=== PATIENT | female | born 1930 | race Caucasian/White ===

== ENCOUNTER 2016-10-01 17:55 | Inpatient (IN) | payer MEDICAID, MEDICARE ==
[~2016-10-01] VITALS: Ht 152.4 cm; Wt 41.7 kg
[~2016-10-01 17:55] MED LIST: AMIO200T PO; LEVO50TA8 PO; Lactose-Free Food PO; METO50TA3 PO; RIVA10TA PO; Valsartan PO
--- NOTE | 2016-10-01 18:25 | NUR ---
CALLED NURSING SUP FOR TELE BED
--- NOTE | 2016-10-01 18:28 | NUR ---
PT BIB RA C/O GENERALIZED WEAKNESS. PT IS FEBRILE CURRENTLY, NO REPORT OF PRIOR FEVERS FROM PRIVATE CAREGIVER. SKIN WARM NONDIAPHORETIC. RESP EVEN UNLABORED. PER PRIVATE CAREGIVER, PT WAS UNABLE TO SWALLOW HER MEDICATIONS TODAY. REPORTS GENERALIZED PAIN. MD NOTIFIED. PT ABLE TO MAKE NEEDS KNOWN, ANSWER QUESTIONS APPROPRIATELY. IN ER BED 03. IV ACCESS ESTABLISHED; LABS DRAWN FROM LINE. IN AND OUT CATH PERFORMED FOR URINE SAMPLE.
--- NOTE | 2016-10-01 18:30 | NUR ---
PT CAN GO TO TELE [phone]
[2016-10-01 18:31] LABS: BASOPHILS # (AUTO) 0.4 /CMM (0.0-0.2); BASOPHILS % (AUTO) 2.4 % (0.0-2.0); EOSINOPHILS % (AUTO) 0.1 % (0.0-6.0); HEMATOCRIT 41 % (33-45); HEMOGLOBIN 13.8 g/dL (11.5-14.8); LYMPHOCYTES # (AUTO) 0.5 /CMM (0.8-4.8); MEAN CORPUSCULAR HEMOGLOBIN 34 PG (26.0-33.0); MEAN CORPUSCULAR HGB CONC 34 g/dl (31.0-36.0); MEAN CORPUSCULAR VOLUME 99 fL (82-100); MONOCYTES # (AUTO) 2.1 /CMM (0.1-1.30); MONOCYTES % (AUTO) 12.5 % (2.0-12.0); NEUTROPHILS # (AUTO) 14.1 /CMM (1.8-8.9); PLATELET COUNT (AUTO) 233 /CMM (150-450); RDW COEFFICIENT OF VARIATION 13.2 (11.5-15.0); RED BLOOD CELL COUNT(AUTO) 4.13 MIL/uL (4.0-5.2); WHITE BLOOD COUNT (AUTO) 17.1 K/uL (4.3-11.0)
--- NOTE | 2016-10-01 18:35 | NUR ---
PT STATES HER PRIMARY CARE PHYSICIAN IS DR HORAN
[2016-10-01 18:38] LABS: APPEARANCE,URINE Turbid (CLEAR); BILIRUBIN,URINE Negative (NEGATIVE); BLOOD, URINE Moderate Ery/uL (NEGATIVE); COLOR,URINE Yellow (YELLOW); KETONES,URINE Negative (NEGATIVE); LEUKOCYTE ESTERASE ,URINE Large (NEGATIVE); NITRITE, URINE Positive (NEGATIVE); PH,URINE 8.5 (5.0-8.0); PROTEIN,URINE 100 mg/dl (NEGATIVE); UGLUCOSE Negative (NEGATIVE); UROBILINOGEN,URINE 0.2 EU/dL (0.2)
[2016-10-01] MEDS ORDERED: ACETAMINOPHEN 650 MG/SUPP.RECT RC ONE ×2 (18:42→19:00)
[2016-10-01] MEDS ORDERED: CEFTRIAXONE 1GM BAG (ER ONLY) 50 ML IV ONE (18:43)
[2016-10-01] MEDS ORDERED: IV NS 0.9% 500 ML IV ONE (18:43)
[2016-10-01] MEDS ORDERED: IV NS 0.9% 1,000 ML ONE (18:43)
[2016-10-01] MEDS ORDERED: IV SET PRIMARY 1 EA INFUS.SET MC ONE (18:43)
[2016-10-01 18:44] LABS: INR 0.94 (0.87-1.13); PROTHROMBIN TIME 9.8 SECS (9.5-12.7)
[2016-10-01 18:47] LABS: ALANINE AMINOTRANSFERASE 242 U/L (12-78); ALBUMIN 3.2 g/dL (3.4-5.0); ASPARTATE AMINOTRANSFERASE 165 U/L (15-37); BILIRUBIN,DIRECT 2.1 mg/dL (0.0-0.2); BILIRUBIN,TOTAL 2.7 mg/dL (0.2-1.0); CALCIUM, SERUM 9.3 mg/dL (8.5-10.1); CARBON DIOXIDE 23 mmol/L (21-32); CHLORIDE 103 mmol/L (98-107); CREATININE 1.7 mg/dL (0.6-1.3); GLUCOSE 130 mg/dL (74-106); SODIUM SERUM 137 mmol/L (136-145); TOTAL PROTEIN, SERUM 7.8 g/dL (6.4-8.2); UREA NITROGEN, BLOOD 30 mg/dL (7-18)
[2016-10-01 18:52] LABS: POTASSIUM 6.3 mmol/L (3.5-5.1)
[2016-10-01 18:54] LABS: LACTIC ACID 3.1 mmol/L (0.4-2.0)
[2016-10-01 18:59] LABS: ADD URINE CULTURE YES; BACTERIA,URINE 4+ /HPF (None Seen); SQUAMOUS EPITHELIAL CELL,UR Few /HPF (None Seen); WBC,URINE 21-50 /HPF (0-3)
[2016-10-01] MEDS ORDERED: IV NS 0.9% 1,000 ML BAG IV ONE (19:00)
[2016-10-01] MEDS ORDERED: CEFTRIAXONE 1 G in IV D5W 50 ML IV ONE (19:00)
--- NOTE | 2016-10-01 19:04 | NUR ---
PAGED CARPET TECHNICIAN FOR [facility] DR SUZI CRISTOBAL
[2016-10-01 19:18] LABS: LIPASE 49768 U/L (73-393)
[2016-10-01] MEDS ORDERED: IV NS 0.9% 1,000 ML IV PRN (19:24)
[2016-10-01] MEDS ORDERED: ENOXAPARIN SODIUM 40 MG/0.4 ML DISP.SYRIN SQ SCH (19:30)
[2016-10-01] MEDS ORDERED: MAGNESIUM HYDROXIDE 30 ML UDC PO PRN (19:30)
[2016-10-01] MEDS ORDERED: ACETAMINOPHEN 325 MG TABLET PO PRN (19:30)
[2016-10-01] MEDS ORDERED: ONDANSETRON HCL/PF 4 MG/2 ML VIAL IVP PRN (19:30)
[2016-10-01] MEDS ORDERED: MORPHINE SULFATE INJ 2 MG/ML DISP.SYRIN IV PRN (19:30)
[2016-10-01] MEDS ORDERED: Z GUARD REMEDY 2 OZ OINT TP PRN (19:30)
[2016-10-01] MEDS ORDERED: ZOLPIDEM TARTRATE 5 MG TABLET PO PRN (19:30)
[2016-10-01] MEDS ORDERED: MAG HYDROX/AL HYDROX/SIMETH 30 ML UDC PO PRN (19:30)
[2016-10-01 19:31] LABS: ALKALINE PHOSPHATASE 1180 U/L (46-116)
--- NOTE | 2016-10-01 19:43 | NUR ---
ROOM CHANGED TO [facility]
[2016-10-01 19:47] LABS: ANISOCYTOSIS 1+; BAND % (MANUAL) 9 % (0.0-5.0); LYMPHOCYTES % (MANUAL) 3 % (16-48); MONOCYTES % (MANUAL) 13 % (0-11.0); NEUTROPHILS % (MANUAL) 75 (42-76); PLATELET ESTIMATE ADEQUATE
--- NOTE | 2016-10-01 19:55 | NUR ---
REPORT GIVEN TO BRENDA RIVAS FOR ADMISSION
[2016-10-01 20:30] VITALS: BP 139/74
[2016-10-01] MEDS ORDERED: SODIUM POLYSTYRENE SULFONATE 15 G/60 ML BOTTLE PO ONE (20:30)
--- NOTE | 2016-10-01 20:30 | NUR ---
RN NOTES ADMITTED A 86 YEARS OLD, FEMALE PT FROM ER WITH PRIMARY DIAGNOSIS OF SEPSIS AND UTI, UNDER DR CRISTOBAL. PT ALERT AND [id number] X2-3, WITH PERIODS OF FORGETFULNESS, NO SOB, NOT IN DISTRESS. VITAL SIGNS STABLE, AFEBRILE. PT DENIES ABDOMINAL PAIN, NAUSEA AND VOMITING. ATTACHED TO TELE MONITOR WHICH READS NORMAL SINUS RHYTHM WITH HEART RATE AT 71. ASSESSMENT OF SKIN CONDITION DONE WITH PICTURES TAKEN AND FILED IN THE CHART. SKIN CARE AND WOUND DRESSING DONE. ALL DUE MEDS GIVEN. ALL ORDERS NOTED AND CARRIED OUT. KEPT COMFORTABLE AND ATTENDED. WILL CONTINUE TO MONITOR PT.
--- NOTE | 2016-10-01 20:30 | NUR ---
PT TRANSPORTED TO [facility] IN STABLE CONDITION VIA ACLS PROTOCOL. VSS. NAD NOTED.
[2016-10-01] MEDS ORDERED: IV SET PRIMARY PUMP SET 1 EA INFUS.SET MC ONE (20:36)
[2016-10-01] MEDS: IV NS 0.9% 1,000 ML IV PRN (20:42)
[2016-10-01] MEDS ORDERED: MEROPENEM 1 G VIAL IV ONE (21:13)
[2016-10-01] MEDS ORDERED: METRONIDAZOLE 500MG/ NS 100ML 200 ML IV ONE (21:14)
[2016-10-01] MEDS ORDERED: SODIUM POLYSTYRENE SULFONATE 15 G/60 ML BOTTLE ONE (21:14)
[2016-10-01] MEDS ORDERED: LEVOFLOXACIN 750 MG /D5W 150ML 150 ML IV ONE (21:14)
[2016-10-01] MEDS ORDERED: AMIODARONE HCL 200 MG TABLET ONE (21:22)
[2016-10-01] MEDS ORDERED: METOPROLOL TARTRATE 50 MG TABLET ONE (21:22)
[2016-10-01] MEDS: MEROPENEM 1 G in IV NS 0.9% 100 ML IV SCH (21:36)
[2016-10-01] MEDS: AMIODARONE HCL 200 MG TABLET PO SCH (21:37)
[2016-10-01] MEDS: METOPROLOL TARTRATE 50 MG TABLET PO SCH (21:37)
[2016-10-01] MEDS ORDERED: SECONDARY IV SET 1 EA INFUS.SET MC ONE (21:40)
[2016-10-02] VITALS: BP 128/69
[2016-10-02] MEDS ORDERED: MORPHINE SULFATE INJ 2 MG/ML DISP.SYRIN ONE (01:00)
--- NOTE | 2016-10-02 01:05 | NUR ---
RN NOTES UPON DOING ROUNDS IT WAS NOTED PT IS MOANING AND COMPLAINING OF ABDOMINAL PAIN 03/11, MORPHINE 2MG GIVEN IV. WILL CONTINUE TO MONITOR PT.
[2016-10-02 04:00] VITALS: BP 110/59
[2016-10-02] MEDS ORDERED: IV NS 0.9% 1,000 ML ONE (05:13)
[2016-10-02] MEDS: IV NS 0.9% 1,000 ML IV PRN ×2 (05:17→14:54)
[2016-10-02] MEDS: MEROPENEM 1 G in IV NS 0.9% 100 ML IV SCH (05:19)
[2016-10-02 06:43] LABS: BASOPHILS % (AUTO) 0.1 % (0.0-2.0); HEMATOCRIT 34 % (33-45); HEMOGLOBIN 11.3 g/dL (11.5-14.8); LYMPHOCYTES # (AUTO) 0.5 /CMM (0.8-4.8); LYMPHOCYTES % (AUTO) 2.4 % (20.0-44.0); MEAN CORPUSCULAR HEMOGLOBIN 33 PG (26.0-33.0); MEAN CORPUSCULAR HGB CONC 33 g/dl (31.0-36.0); MEAN CORPUSCULAR VOLUME 101 fL (82-100); MONOCYTES # (AUTO) 0.4 /CMM (0.1-1.30); MONOCYTES % (AUTO) 2.1 % (2.0-12.0); NEUTROPHILS # (AUTO) 19.4 /CMM (1.8-8.9); NEUTROPHILS % (AUTO) 95.4 % (43.0-81.0); PLATELET COUNT (AUTO) 181 /CMM (150-450); RED BLOOD CELL COUNT(AUTO) 3.41 MIL/uL (4.0-5.2); WHITE BLOOD COUNT (AUTO) 20.4 K/uL (4.3-11.0)
[2016-10-02 06:50] VITALS: BP 114/64
--- NOTE | 2016-10-02 06:59 | NUR ---
RN NOTES PT ASLEEP IN BED, BREATHING REGULAR AND UNLABORED, NO SIGNS OF DISTRESS AND DISCOMFORT NOTED. TELEMONITOR READS SINUS RHYTHM WITH HEART RATE AT 72. VITAL SIGNS STABLE, AFEBRILE, NO CHILLS, NO EPISODE OF NAUSEA AND VOMITING. KEPT PAIN AT TOLERABLE LEVEL. AA DUE MEDS GIVEN AND TOLERATED WELL. SKIN CARE AND WOUND CARE DONE. TURNED AND REPOSITION Q2H SCHEDULED. KEPT DRY AND ATTENDED. WILL ENDORSE TO MORNING RN FOR CONTINUITY OF CARE.
[2016-10-02 07:34] LABS: ALBUMIN 2.3 g/dL (3.4-5.0); BILIRUBIN,TOTAL 2.7 mg/dL (0.2-1.0); CALCIUM, SERUM 8.1 mg/dL (8.5-10.1); CREATININE 1.2 mg/dL (0.6-1.3); PHOSPHORUS 3.9 mg/dL (2.5-4.9); POTASSIUM 4.5 mmol/L (3.5-5.1); TOTAL PROTEIN, SERUM 6.1 g/dL (6.4-8.2)
[2016-10-02] MEDS: LEVOTHYROXINE SODIUM 50 MCG TABLET PO SCH (08:40)
[2016-10-02] MEDS: METOPROLOL TARTRATE 50 MG TABLET PO SCH ×2 (08:40→21:00)
--- NOTE | 2016-10-02 09:18 | NUR ---
m/s lead c developer: md visit seen and examined by dr. tovar with orders. orders acknowledged.
--- NOTE | 2016-10-02 09:36 | NUR ---
m/s senior windows engineer: gi consult and neuro consult seen by dr. callaway (gi) and dr. nichols (neuro) at this time. per dr. callaway to continue clear liquid. pt denies n/v or any discomfort. will continue to monitor.
--- NOTE | 2016-10-02 09:44 | NUR ---
m/s lead teacher: notes received new orders from dr. callaway and orders acknowledged. informed dr. callaway that pt has a pacemaker and unable to do mrcp with order to cancel and keep her npo, stated, "it's too early to feed her." pt made aware. katarina (tech) here and informed him pt has a pacemaker, stated, "i will cancel it."
--- NOTE | 2016-10-02 10:08 | NUR ---
WOUND CARE CONSULT: PATIENT SEEN AND SKIN ASSESSMENT DONE. PATIENT ALERT, WEAK, IMMOBILE, INCONTINENT, ALBIN 13, NURSING STAFF ORDERED DEE ISOFLEX JOSE BED AND WILL BE PLACED WHEN AVAILABLE IN THE UNIT. SEE TODAY'S SKIN ASSESSMENT IN PCS ALONG WITH RECOMMENDATIONS. RECOMMEND MOISTURE PROTECTION AND PRESSURE PREVENTION MEASURES ORDERED. ALL DISCUSSED WITH NURSING STAFF. MD IN AGREEMENT WITH PLAN OF CARE. Addendum: 10/02/16 at 1010 by MADINA IGNACIO WNDNU Amended: Links added.
[2016-10-02] MEDS: PANTOPRAZOLE 40 MG VIAL IV SCH (10:15)
[2016-10-02 10:27] LABS: BAND % (MANUAL) 2 % (0.0-5.0); LYMPHOCYTES % (MANUAL) 4 % (16-48); MONOCYTES % (MANUAL) 3 % (0-11.0); NEUTROPHILS % (MANUAL) 91 (42-76)
[2016-10-02 10:28] LABS: PLATELET ESTIMATE ADEQUATE
[2016-10-02 10:32] LABS: ALBUMIN 2.2 g/dL (3.4-5.0); BILIRUBIN,DIRECT 1.9 mg/dL (0.0-0.2); BILIRUBIN,TOTAL 2.4 mg/dL (0.2-1.0); TOTAL PROTEIN, SERUM 5.7 g/dL (6.4-8.2)
[2016-10-02 10:37] LABS: THYROID STIMULATING HORMONE 0.315 uIU/mL (0.358-3.74)
[2016-10-02] MEDS: AMIODARONE HCL 200 MG TABLET PO SCH ×2 (10:44→22:25)
--- NOTE | 2016-10-02 11:55 | NUR ---
m/s donor relations manager: plastic surgeon consult dr. morris and tejas (acnp) at bedside assessing pt's skin at this time.
[2016-10-02] MEDS: CLOTRIMAZOLE 1% 15 GM TUBE TP SCH ×2 (13:46→16:50)
[2016-10-02] MEDS: UREA 10% -AHA 4% CREAM 57 GM TUBE TP SCH ×2 (13:47→16:50)
[2016-10-02] MEDS: HYDROGEL DRESSING 90 GM TUBE TP SCH (13:47)
--- NOTE | 2016-10-02 14:30 | NUR ---
m/s document management specialist: notes taken to ct scan via bed accompanied by tech.
--- NOTE | 2016-10-02 14:45 | NUR ---
M/S SURGICAL RESIDENT: NOTES BACK FROM CT SCAN TO HER ROOM. CALL LIGHT WITHIN REACH. IVF CONNECTED. WILL CONTINUE TO MONITOR.
--- NOTE | 2016-10-02 15:30 | NUR ---
M/S FRAME REPAIRER: NOTES BETTIE LI CALLED AND INFORMED ME RE: POSITIVE MRSA RIGHT NARES. CN MADE AWARE. EDUCATED PT ON MRSA AND ISOLATION PRECAUTION FOLLOWED. WILL CONTINUE TO MONITOR.
[2016-10-02 16:00] VITALS: BP_SYST 127; BP_DIAS 63; BP_DIAS 73
[2016-10-02] MEDS: BOOST PLUS FOOD-VANILLA 237 ML BOX PO SCH (16:48)
[2016-10-02] MEDS: RIVAROXABAN 15 MG TABLET PO SCH (16:51)
--- NOTE | 2016-10-02 18:18 | NUR ---
m/s manager shipping: notes resting comfortable in bed with no distress noted. remains npo. continue on ivf, infusing well. needs attended. call light within reach. will continue to monitor.
--- NOTE | 2016-10-02 19:30 | NUR ---
RN OPENING NOTES FOUND Pt ASLEEP IN BED. NO S/S OF ACUTE DISTRESS OR SOB NOTED. EQUAL CHEST RISE AND FALL. ON ISOLATION FOR MRSA NARES. Pt IS A/OX2, VERBAL, ABLE TO MAKE NEEDS KNOWN. CURRENTLY NPO EXCEPT FOR MEDS. IV ACCESS ON RFA #18G, NS @125ML/HR, INFUSING WELL. SAFETY MEASURES IN PLACE. BED LOW, LOCKED, HOB ELEVATED, SIDE RAILS UP, CALL LIGHT WITHIN EACH. WILL CONTINUE TO MONITOR Pt THROUGHOUT THE NIGHT FOR SAFETY.
[2016-10-02 20:00] VITALS: BP 121/58
[2016-10-02] MEDS: MUPIROCIN OINT 2% 22 GM TUBE SCH (21:00)
[2016-10-02] MEDS ORDERED: MUPIROCIN OINT 2% 22 GM TUBE SCH (21:00)
[2016-10-02 22:00] VITALS: BP 120/58
[2016-10-02] MEDS: MEROPENEM 500 MG in IV NS 0.9% 50 ML IV SCH (22:23)
[2016-10-03] MEDS: IV NS 0.9% 1,000 ML IV PRN ×2 (01:42→10:32)
--- NOTE | 2016-10-03 06:47 | NUR ---
RN CLOSING NOTES NO SIGNIFICANT CHANGES DURING THE SHIFT. ALL NEEDS MET AND ATTENDED TO. NO S/S OF ACUTE DISTRESS OR SOB NOTED DURING THE NIGHT. ALL SAFETY MEASURES CARRIED OUT. WILL ENDORSE TO DAYSHIFT RN FOR Pt's CARMINE.
[2016-10-03 07:21] LABS: BASOPHILS % (AUTO) 0.2 % (0.0-2.0); EOSINOPHILS % (AUTO) 0.3 % (0.0-6.0); HEMATOCRIT 34 % (33-45); HEMOGLOBIN 11.4 g/dL (11.5-14.8); LYMPHOCYTES # (AUTO) 0.7 /CMM (0.8-4.8); LYMPHOCYTES % (AUTO) 5.1 % (20.0-44.0); MEAN CORPUSCULAR HEMOGLOBIN 33 PG (26.0-33.0); MEAN CORPUSCULAR HGB CONC 34 g/dl (31.0-36.0); MEAN CORPUSCULAR VOLUME 100 fL (82-100); MONOCYTES # (AUTO) 0.7 /CMM (0.1-1.30); MONOCYTES % (AUTO) 4.9 % (2.0-12.0); NEUTROPHILS # (AUTO) 12.9 /CMM (1.8-8.9); NEUTROPHILS % (AUTO) 89.5 % (43.0-81.0); PLATELET COUNT (AUTO) 197 /CMM (150-450); RDW COEFFICIENT OF VARIATION 13.7 (11.5-15.0); RED BLOOD CELL COUNT(AUTO) 3.43 MIL/uL (4.0-5.2); WHITE BLOOD COUNT (AUTO) 14.4 K/uL (4.3-11.0)
[2016-10-03 07:50] LABS: CALCIUM, SERUM 7.8 mg/dL (8.5-10.1); CREATININE 0.8 mg/dL (0.6-1.3)
[2016-10-03 08:00] VITALS: BP 147/75
--- NOTE | 2016-10-03 08:00 | NUR ---
MS RN NOTE. PT. AWAKE, ALERT AND ORIENTED X2. DENIED PAIN AND SOB. NS@125ML/HR IVF. SIDE RAILS UP. CALL LIGHT WITHIN REACH. MONITOR CLOSELY.
[2016-10-03 08:07] LABS: MAGNESIUM 1.7 mg/dL (1.8-2.4); PHOSPHORUS 3.4 mg/dL (2.5-4.9)
--- NOTE | 2016-10-03 08:30 | NUR ---
SERUM POTASSIUM LEVEL 2.0. WILL RECHECK IT.
[2016-10-03] MEDS: MEROPENEM 500 MG in IV NS 0.9% 50 ML IV SCH ×2 (08:53→21:55)
[2016-10-03] MEDS: LEVOTHYROXINE SODIUM 50 MCG TABLET PO SCH (08:54)
[2016-10-03] MEDS: PANTOPRAZOLE 40 MG VIAL IV SCH (08:54)
[2016-10-03] MEDS: AMIODARONE HCL 200 MG TABLET PO SCH ×2 (08:56→21:00)
[2016-10-03] MEDS: METOPROLOL TARTRATE 50 MG TABLET PO SCH ×2 (08:57→21:59)
[2016-10-03] MEDS: HYDROGEL DRESSING 90 GM TUBE TP SCH (09:06)
[2016-10-03] MEDS: CLOTRIMAZOLE 1% 15 GM TUBE TP SCH ×2 (09:06→16:36)
[2016-10-03] MEDS: BOOST PLUS FOOD-VANILLA 237 ML BOX PO SCH ×2 (09:58→16:37)
[2016-10-03] MEDS: MUPIROCIN OINT 2% 22 GM TUBE SCH ×2 (09:59→21:58)
[2016-10-03] MEDS: UREA 10% -AHA 4% CREAM 57 GM TUBE TP SCH ×2 (09:59→16:36)
--- NOTE | 2016-10-03 10:00 | NUR ---
RECHECKED POTASSIUM LEVEL. IT WAS 2.0. NOTIFIED TO KARSTEN WINSLOW.
[2016-10-03] MEDS ORDERED: POTASSIUM CHLORIDE 10 MEQ/50 ML PREMIXED IVPB FOR PERIPHERAL LINE IV SCH (11:30)
[2016-10-03] MEDS ORDERED: POTASSIUM CHLORIDE 20 MEQ TAB.PRT.SR PO ONE (11:30)
[2016-10-03] MEDS ORDERED: SECONDARY IV SET 1 EA INFUS.SET MC ONE ×2 (11:40→14:02)
[2016-10-03] MEDS: POTASSIUM CL. PREMIX PERIPHER. 50 ML IV SCH ×2 (12:06→13:03)
[2016-10-03] MEDS: Magnesium 1GM/D5W 100ML PREMIX 100 ML IV SCH ×2 (14:19→15:18)
[2016-10-03 16:00] VITALS: BP 152/68
[2016-10-03] MEDS: IV 1/2NS 1000 ML 1,000 ML IV PRN (16:25)
[2016-10-03] MEDS: HYDROCODONE/APAP 5/325MG 1 EACH TABLET PO PRN (16:35)
[2016-10-03] MEDS: RIVAROXABAN 15 MG TABLET PO SCH (16:37)
--- NOTE | 2016-10-03 18:35 | NUR ---
CLOSING NOTE PT. AWAKE, ALERT AND ORIENTED X2. DENIED PAIN AT THIS TIME. REPOSITIONED PER PROTOCOL. SACRAL DRESSING CHANGED TWICE. 1/2NS @ 125ML/HR IVF. SIDE RAILS UP. CALL LIGHT WITHIN REACH. MONITOR CLOSELY.
--- NOTE | 2016-10-03 19:45 | NUR ---
RN OPENING NOTES RECEIVED REPORT FROM DAYSHIFT RN BRADY. FOUND Pt AWAKE IN BED. ECHO WAS BEING DONE AT BEDSIDE. NO S/S OF ACUTE DISTRESS OR SOB NOTED. Pt IS A/OX2, VERBAL. IV ACCESS RFA #18G, IVF 1/2NS @125ML/HR. SAFETY MEASURES IN PLACE. BED LOW, LOCKED, HOB ELEVATED, SIDE RAILS UP, CALL LIGHT AND BEDSIDE TABLE WITHIN REACH. WILL CONTINUE TO MONITOR Pt THROUGHOUT THE NIGHT FOR SAFETY.
[2016-10-03 19:50] VITALS: BP 139/78
[2016-10-03 22:00] VITALS: BP 139/78
[2016-10-04] MEDS: HYDROCODONE/APAP 5/325MG 1 EACH TABLET PO PRN ×2 (01:37→15:24)
[2016-10-04] MEDS: IV 1/2NS 1000 ML 1,000 ML IV PRN ×2 (01:49→10:44)
[2016-10-04 07:05] LABS: BASOPHILS # (AUTO) 0.1 /CMM (0.0-0.2); BASOPHILS % (AUTO) 0.4 % (0.0-2.0); EOSINOPHILS # (AUTO) 0.1 /CMM (0.0-0.7); EOSINOPHILS % (AUTO) 0.8 % (0.0-6.0); HEMATOCRIT 33 % (33-45); HEMOGLOBIN 11.6 g/dL (11.5-14.8); LYMPHOCYTES # (AUTO) 1.2 /CMM (0.8-4.8); LYMPHOCYTES % (AUTO) 7.9 % (20.0-44.0); MEAN CORPUSCULAR HEMOGLOBIN 34 PG (26.0-33.0); MEAN CORPUSCULAR HGB CONC 35 g/dl (31.0-36.0); MEAN CORPUSCULAR VOLUME 99 fL (82-100); MONOCYTES # (AUTO) 1.1 /CMM (0.1-1.30); MONOCYTES % (AUTO) 7.9 % (2.0-12.0); NEUTROPHILS # (AUTO) 12.1 /CMM (1.8-8.9); PLATELET COUNT (AUTO) 249 /CMM (150-450); RDW COEFFICIENT OF VARIATION 13.9 (11.5-15.0); RED BLOOD CELL COUNT(AUTO) 3.37 MIL/uL (4.0-5.2); WHITE BLOOD COUNT (AUTO) 14.6 K/uL (4.3-11.0)
--- NOTE | 2016-10-04 07:15 | NUR ---
MS RN INITIAL NOTES REPORT RECEIVED AT THE BEDSIDE. PATIENT IS RESTING COMFORTABLY IN BED. NO SOB OR DISTRESS NOTED AT THIS TIME. PATIENT DENIES PAIN. BED IN A LOW POSITION, CALL LIGHT WITHIN PATIENT REACH. WILL CONTINUE TO MONITOR.
[2016-10-04 07:30] LABS: CALCIUM, SERUM 8.4 mg/dL (8.5-10.1); CREATININE 0.9 mg/dL (0.6-1.3); MAGNESIUM 2.4 mg/dL (1.8-2.4); PHOSPHORUS 1.9 mg/dL (2.5-4.9); POTASSIUM 3.4 mmol/L (3.5-5.1)
[2016-10-04] MEDS: BOOST PLUS FOOD-VANILLA 237 ML BOX PO SCH ×2 (08:25→16:56)
[2016-10-04] MEDS: MEROPENEM 500 MG in IV NS 0.9% 50 ML IV SCH ×2 (08:25→21:17)
--- NOTE | 2016-10-04 08:25 | NUR ---
MS RN NOTES PATIENT HAS A MILD FEVER OF 99. INFORMED PATIENT THAT I WOULD BE GIVING TYLENOL, BUT PATIENT REFUSED. EXPLAINED TO THE PATIENT THAT THE MEDICATION WOULD HELP REDUCE THE FEVER. PATIENT STATES UNDERSTANDING, BUT REFUSES TYLENOL. IMPLEMENTED COOLING MEASURES FOR PATIENT. WILL RECHECK TEMP.
[2016-10-04] MEDS: METOPROLOL TARTRATE 50 MG TABLET PO SCH ×2 (08:26→21:22)
[2016-10-04] MEDS: AMIODARONE HCL 200 MG TABLET PO SCH ×2 (08:26→21:23)
[2016-10-04] MEDS: LEVOTHYROXINE SODIUM 50 MCG TABLET PO SCH (08:26)
[2016-10-04] MEDS: PANTOPRAZOLE 40 MG VIAL IV SCH (08:26)
[2016-10-04] MEDS: MUPIROCIN OINT 2% 22 GM TUBE SCH ×2 (08:27→21:24)
[2016-10-04] MEDS: HYDROGEL DRESSING 90 GM TUBE TP SCH (08:27)
[2016-10-04] MEDS: CLOTRIMAZOLE 1% 15 GM TUBE TP SCH ×2 (08:28→16:57)
[2016-10-04] MEDS: UREA 10% -AHA 4% CREAM 57 GM TUBE TP SCH ×2 (08:33→16:57)
--- NOTE | 2016-10-04 09:00 | NUR ---
MS RN NOTES PATIENT TEMP NOW 98.7 AFTER IMPLEMENTING COOLING MEASURES. WILL CONTINUE TO MONITOR.
[2016-10-04 09:03] VITALS: BP 126/69
[2016-10-04] MEDS ORDERED: FUROSEMIDE 20 MG/2 ML VIAL IV ONE (10:30)
[2016-10-04] MEDS ORDERED: SECONDARY IV SET 1 EA INFUS.SET MC ONE (10:36)
[2016-10-04] MEDS: POTASSIUM CL. PREMIX PERIPHER. 50 ML IV SCH ×4 (10:44→14:10)
--- NOTE | 2016-10-04 12:55 | NUR ---
MS RN NOTES PER SPEECH THERAPY, THEY RECOMMEND NECTAR THICK LIQUIDS WITH PUREE DIET. INFORMED KARSTEN ROSARIO, WHO STATES IT IS OK TO PLACE THE ORDER AND TO MAKE SURE MEAL PERCENTAGES ARE DOCUMENTED ACCURATELY. WILL PLACE ORDERS.
[2016-10-04] MEDS ORDERED: K PHOS NEUTRAL 250 MG TABLET PO ONE (14:00)
[2016-10-04 16:00] VITALS: BP 140/80
[2016-10-04] MEDS: RIVAROXABAN 15 MG TABLET PO SCH (16:56)
--- NOTE | 2016-10-04 19:16 | NUR ---
MS RN CLOSING NOTES NO SIGNIFICANT CHANGES IN PATIENT CONDITION THROUGHOUT THE SHIFT. NO SOB OR DISTRESS NOTED AT THIS TIME. PATIENT DENIES PAIN. BED IN A LOW POSITION, CALL LIGHT WITHIN PATIENT REACH. WILL ENDORSE FOR CARMINE.
--- NOTE | 2016-10-04 19:48 | NUR ---
RN OPENING NOTES RECEIVED REPORT FROM DILIPMERENA FORBES. FOUND Pt AWAKE IN BED WATCHING TV. NO S/S OF ACUTE DISTRESS OR SOB NOTED. NO C/O PAIN AT THIS TIME. Pt IS A/OX2, VERBAL. IV ACCESS RFA #18G, IVF 1/2NS @75ML/HR. NOW ON A PUREE/NTL DIET. SAFETY MEASURES IN PLACE. BED LOW, LOCKED, HOB ELEVATED, SIDE RAILS UP, CALL LIGHT AND BEDSIDE TABLE WITHIN REACH. WILL CONTINUE TO MONITOR Pt THROUGHOUT THE NIGHT FOR SAFETY.
[2016-10-04 20:00] VITALS: BP 156/75
[2016-10-05] MEDS ORDERED: IV SET PRIMARY PUMP SET 1 EA INFUS.SET MC ONE (06:08)
[2016-10-05] MEDS: IV 1/2NS 1000 ML 1,000 ML IV PRN (06:20)
[2016-10-05 07:11] LABS: CALCIUM, SERUM 8.4 mg/dL (8.5-10.1); CREATININE 0.8 mg/dL (0.6-1.3); PHOSPHORUS 2.3 mg/dL (2.5-4.9); POTASSIUM 3.9 mmol/L (3.5-5.1)
--- NOTE | 2016-10-05 07:40 | NUR ---
MS RN OPENING NOTE PATIENT IS ASLEEP IN BED. ALERT AND ORIENTED x2. NO PAIN AT THIS TIME. NO SOB OR DISTRESS NOTED. SAFETY MEASURES IMPLEMENTED. CALL LIGHT WITHIN REACH. BED LOCKED IN LOWEST POSITION WITH SIDERAILS UP x2. ALLERGY TO PCN AND SULFA ANTIBIOTICS, MERREM IS OKAY. CONTACT ISOLATION FOR MRSA IN NARES. IV INTACT AND PATENT NO REDNESS OR SWELLING NOTED. PUREED DIET WITH NECTAR THICK LIQUID. WILL CONTINUE TO MONITOR
[2016-10-05 08:00] VITALS: BP 121/96
[2016-10-05] MEDS: LEVOTHYROXINE SODIUM 50 MCG TABLET PO SCH (08:15)
[2016-10-05] MEDS: BOOST PLUS FOOD-VANILLA 237 ML BOX PO SCH (08:15)
[2016-10-05 08:16] VITALS: BP 121/96
[2016-10-05] MEDS: PANTOPRAZOLE 40 MG VIAL IV SCH (08:16)
[2016-10-05] MEDS: METOPROLOL TARTRATE 50 MG TABLET PO SCH (08:16)
[2016-10-05] MEDS: AMIODARONE HCL 200 MG TABLET PO SCH (08:16)
[2016-10-05] MEDS: UREA 10% -AHA 4% CREAM 57 GM TUBE TP SCH (08:17)
[2016-10-05] MEDS: CLOTRIMAZOLE 1% 15 GM TUBE TP SCH (08:17)
[2016-10-05] MEDS: HYDROGEL DRESSING 90 GM TUBE TP SCH (08:18)
[2016-10-05] MEDS: MEROPENEM 500 MG in IV NS 0.9% 50 ML IV SCH (08:33)
[2016-10-05] MEDS ORDERED: CLOT15CR35 TP (10:22)
[2016-10-05] MEDS ORDERED: MUPI22OI7 (10:22)
[2016-10-05] MEDS ORDERED: MERO500V IV (10:22)
--- NOTE | 2016-10-05 13:15 | NUR ---
MS DIE STORAGE WORKER NOTE PATIENT IS ALERT AND ORIENTED X4. NO PAIN AT THIS TIME. NO SOB OR DISTRESS NOTED. ALL DUE MEDICATIONS GIVEN ORDERED. ALL NURSING CARE NEEDS ATTENDED TO. CALL LIGHT WITHIN REACH AT ALL TIMES. ALL BELONGINGS SENT WITH EMT VIA AMBULANCE TO [facility]. GAVE REPORT TO EVELYN MARTINEZ ASBESTOS SHINGLE INSPECTOR ON BEHALF OF PATIENT. ALL DISCHARGE INSTRUCTIONS GIVEN TO HER. MADE FAMILY AWARE OF DISCHARGE WILL FOLLOW UP WITH PATIENT AT FACILITY.
[2016-10-05] MEDS ORDERED: K PHOS NEUTRAL 250 MG TABLET PO ONE (14:30)
== END 2016-10-05 13:15 | DRG 720 ==
LOC: ER 17:59 → TELE 19:19 → MED 10-02 09:12
PROVIDERS: ADMIT Family Medicine; ATTEND Family Medicine
DX: A41.9 Sepsis, unspecified organism (principal); N17.0 Acute kidney failure with tubular necrosis; E43 Unspecified severe protein-calorie malnutrition; E87.0 Hyperosmolality and hypernatremia; L89.152 Pressure ulcer of sacral region, stage 2; K85.90 Acute pancreatitis without necrosis or infection, unspecified; I11.0 Hypertensive heart disease with heart failure; E87.2 Acidosis; G92 Toxic encephalopathy; I50.30 Unspecified diastolic (congestive) heart failure; D68.59 Other primary thrombophilia; F03.90 Unspecified dementia, unspecified severity, without behavioral disturbance, psychotic disturbance, mood disturbance, and anxiety; I27.2 Other secondary pulmonary hypertension; N39.0 Urinary tract infection, site not specified; I48.0 Paroxysmal atrial fibrillation; R65.20 Severe sepsis without septic shock; I25.10 Atherosclerotic heart disease of native coronary artery without angina pectoris; E03.9 Hypothyroidism, unspecified; E78.5 Hyperlipidemia, unspecified; F32.9 Major depressive disorder, single episode, unspecified; E87.5 Hyperkalemia; E87.6 Hypokalemia; B96.89 Other specified bacterial agents as the cause of diseases classified elsewhere; N13.30 Unspecified hydronephrosis; Z68.1 Body mass index [BMI] 19.9 or less, adult
CPT/HCPCS: 36415; 70450-TC; 71010-TC; 76700-TC; 80048-TC; 80053-TC; 80061-TC; 80076-TC; 81000-TC; 82140-TC; 83605-TC; 83690-TC; 83735-TC; 84100-TC; 84132-TC; 84443-TC; 85025-TC; 85730-TC; 87040-TC; 87081-TC; 87086-TC; 87186-TC; 92526; 92611-TC; 93307-TC; 94799-TC; 97001-TC; A4216; A4606; A6248; A6403; C9113; J0696; J1940; J1956; J2185; J2270; J3475; J3480; J3490; J7030; J7040; Z7610

== ENCOUNTER 2016-12-28 10:09 | Inpatient (IN) | payer MEDICAID, MEDICARE ==
[~2016-12-28] VITALS: Ht 157.5 cm; Wt 36.3 kg
[~2016-12-28 10:09] MED LIST changes: +CLOT15CR35 TP; +MERO500V IV; +MUPI22OI7
[2016-12-28] MEDS ORDERED: IV NS 0.9% 1,000 ML ONE (10:13)
[2016-12-28] MEDS ORDERED: IV SET PRIMARY 1 EA INFUS.SET MC ONE (10:13)
--- NOTE | 2016-12-28 10:13 | NUR ---
PT EDI RA FROM BOARD AND CARE FOR GENERALIZED WEAKNESS. PT CONFUSED SPEAKS FEW WORDS UNABLE TO FOLLOW COMMANDS . PT NON AMBULATORY CONTRACTED BUE AND BLE. PT HAS COCCYX WOUND. PLACED ON MONITOR. GOWNED PT. AWAITING MD ORDER.
[2016-12-28] MEDS ORDERED: IV NS 0.9% 1,000 ML BAG IV ONE (10:30)
--- NOTE | 2016-12-28 10:30 | NUR ---
DR LEYVA AT BEDSIDE FOR EVAL
[2016-12-28 10:34] LABS: BASOPHILS # (AUTO) 0.1 /CMM (0.0-0.2); BASOPHILS % (AUTO) 0.8 % (0.0-2.0); EOSINOPHILS % (AUTO) 0.1 % (0.0-6.0); HEMATOCRIT 49 % (33-45); HEMOGLOBIN 16.1 g/dL (11.5-14.8); LYMPHOCYTES # (AUTO) 0.6 /CMM (0.8-4.8); MEAN CORPUSCULAR HEMOGLOBIN 33 PG (26.0-33.0); MEAN CORPUSCULAR HGB CONC 33 g/dl (31.0-36.0); MEAN CORPUSCULAR VOLUME 103 fL (82-100); MONOCYTES # (AUTO) 1.1 /CMM (0.1-1.30); NEUTROPHILS # (AUTO) 8.3 /CMM (1.8-8.9); NEUTROPHILS % (AUTO) 82.1 % (43.0-81.0); PLATELET COUNT (AUTO) 157 /CMM (150-450); RDW COEFFICIENT OF VARIATION 14.8 (11.5-15.0); RED BLOOD CELL COUNT(AUTO) 4.82 MIL/uL (4.0-5.2); WHITE BLOOD COUNT (AUTO) 10.1 K/uL (4.3-11.0)
--- NOTE | 2016-12-28 10:40 | NUR ---
EKG IN PROGRESS
[2016-12-28] MEDS ORDERED: LEVO50TA8 PO (10:43)
[2016-12-28] MEDS ORDERED: NITR100C PO (10:43)
[2016-12-28] MEDS ORDERED: METO50TA3 PO (10:43)
[2016-12-28] MEDS ORDERED: AMIO200T2 PO (10:43)
[2016-12-28] MEDS ORDERED: MAG30ORA PO (10:43)
[2016-12-28] MEDS ORDERED: ACET-868 PO (10:43)
[2016-12-28] MEDS ORDERED: MAGN400O6 PO (10:43)
--- NOTE | 2016-12-28 10:45 | NUR ---
JOSE ENRIQUE #18 IV ACCESS. BLOOD SAMPLE COLLECTED SENT TO LAB
[2016-12-28 10:47] LABS: INR 1.22 (0.87-1.13); PROTHROMBIN TIME 12.8 SECS (9.5-12.7)
--- NOTE | 2016-12-28 10:49 | NUR ---
URINE SAMPLE COLLECTED SENT TO LAB
[2016-12-28 10:50] LABS: ALBUMIN 2.2 g/dL (3.4-5.0); ALKALINE PHOSPHATASE 100 U/L (46-116); BILIRUBIN,DIRECT 0.8 mg/dL (0.0-0.2); BILIRUBIN,TOTAL 1.2 mg/dL (0.2-1.0); CALCIUM, SERUM 8.2 mg/dL (8.5-10.1); CARBON DIOXIDE 26 mmol/L (21-32); CHLORIDE 116 mmol/L (98-107); CREATININE 1.7 mg/dL (0.6-1.3); GLUCOSE 128 mg/dL (74-106); POTASSIUM 4.8 mmol/L (3.5-5.1); SODIUM SERUM 151 mmol/L (136-145); TOTAL PROTEIN, SERUM 6.1 g/dL (6.4-8.2)
[2016-12-28 10:51] LABS: TROPONIN I 0.049 ng/mL (0.00-0.056)
[2016-12-28 10:54] LABS: UREA NITROGEN, BLOOD 86 mg/dL (7-18)
[2016-12-28 11:15] LABS: APPEARANCE,URINE Slightly Cloudy (CLEAR); BILIRUBIN,URINE MODERATE (NEGATIVE); BLOOD, URINE Small Ery/uL (NEGATIVE); COLOR,URINE Dark (YELLOW); KETONES,URINE Trace (NEGATIVE); LEUKOCYTE ESTERASE ,URINE Trace (NEGATIVE); NITRITE, URINE Negative (NEGATIVE); PROTEIN,URINE 30 mg/dl (NEGATIVE); UGLUCOSE Negative (NEGATIVE)
--- NOTE | 2016-12-28 11:15 | NUR ---
SUJIT FORBES PAGED [phone]
[2016-12-28 11:21] LABS: BACTERIA,URINE Many /HPF (None Seen); SQUAMOUS EPITHELIAL CELL,UR Many /HPF (None Seen)
[2016-12-28 11:23] LABS: BAND % (MANUAL) 10 % (0.0-5.0); EOSINOPHILS % (MANUAL) 1 % (0-4); LYMPHOCYTES % (MANUAL) 10 % (16-48); MONOCYTES % (MANUAL) 10 % (0-11.0); NEUTROPHILS % (MANUAL) 69 (42-76)
[2016-12-28] MEDS ORDERED: IV SET PRIMARY PUMP SET 1 EA INFUS.SET MC ONE (11:55)
[2016-12-28] MEDS ORDERED: LEVOFLOXACIN 750 MG /D5W 150ML 150 ML IV ONE (11:55)
[2016-12-28] MEDS ORDERED: LEVOFLOXACIN 750 MG /D5W 150ML PIGGYBACK IV ONE (12:00)
[2016-12-28 12:07] LABS: ASPARTATE AMINOTRANSFERASE 1650 U/L (15-37)
[2016-12-28 12:08] LABS: ALANINE AMINOTRANSFERASE 2333 U/L (12-78)
--- NOTE | 2016-12-28 12:30 | NUR ---
GAVE REPORT TO DINESH RIVAS MEDSUR ROOM 201 DX ACUTE RENAL FAILURE UNDER SUJIT FORBES
--- NOTE | 2016-12-28 12:50 | NUR ---
MS RN OPENING RECEIVED PATIENT A/OX2 PATIENT ABLE TO STATE NAME AND , AND WHERE SHE IS. PATIENT DENIES PAIN SOB DIFFICULTY BREATHING. PATIENT SKIN CARE COMPLETED AND SACRAL WOUND CLEANSED WITH NS AND MEPILEX APPLIED. PATIENT VS BEING TAKEN BY LUCIA MCDONALD. NOTIFIED SUJIT FORBES PATIENT IS HERE AND HE IS AWARE. PATIENT APPEARS STABLE AT THIS TIME AND REPOSITIONED IN POSITION OF COMFORT. PATIENT WITH CALL LIGHT IN REACH, BED LOWERED AND LOCKED, RAILS UPX3 FOR SAFETY AND WILL ROUND Q2H OR LESS PER NEEDS.
--- NOTE | 2016-12-28 13:23 | NUR ---
MS RN NOTES WILL F/U WITH MD IF HICKMAN IS WANTED DUE TO SACRAL WOUND
[2016-12-28 13:58] VITALS: BP 96/51
--- NOTE | 2016-12-28 14:20 | NUR ---
MS RN NOTES SPOKE TO PATIENT CESAR RODRIGUEZN AND PER MADHU PATIENT IS DNR/DNI. PROVIDED MADHU FAX NUBMER AND SHE WILL FIND PATIENT JOHN AND FAX OVER
[2016-12-28 16:18] VITALS: BP 127/74
[2016-12-28] MEDS ORDERED: ACETAMINOPHEN 325 MG TABLET PO PRN (16:30)
[2016-12-28] MEDS ORDERED: ONDANSETRON HCL/PF 4 MG/2 ML VIAL IVP PRN (16:30)
[2016-12-28 17:13] LABS: TROPONIN I 0.054 ng/mL (0.00-0.056)
[2016-12-28] MEDS: Z GUARD REMEDY 2 OZ OINT TP PRN (17:26)
[2016-12-28] MEDS: ENOXAPARIN SODIUM 30 MG/0.3 ML DISP.SYRIN SQ SCH (17:26)
[2016-12-28] MEDS: IV 1/2NS 1000 ML 1,000 ML IV PRN (17:26)
--- NOTE | 2016-12-28 18:56 | NUR ---
MS RN NOTES PATIENT STABLE. REFUSED TO EAT ANY DINNER, CHANGED CONSISTENCY STILL REFUSED. HOSPICE EVAL PENDING. DPOA MADHU GIVEN CM # AND CM AWARE OF EVAL. PATIENT TURNED Q2H AND HEELS AND ELBOWS OFFLOADED. BED LOWERED AND LOCKED, RAILS UPX3 FOR SAFETY WITH BED ALARM ON, TV ON FOR COMFORT. WILL ENDORSE CARE TO RN FOR CARMINE
--- NOTE | 2016-12-28 19:30 | NUR ---
MSRN ASLEEP AT THIS TIME, APPEARS COMFORTABLE. CLOSELY WATCHED. PATIENT ON ISOLATION PRECAUTION FOR MRSA AND ESBL HISTORY. WILL FOLLOW UP MRSA SURVEILANCE.PRESENT IVF INFUSING WELL.
[2016-12-28 20:00] VITALS: BP 124/64
[2016-12-28] MEDS: METOPROLOL TARTRATE 50 MG TABLET PO SCH (21:00)
--- NOTE | 2016-12-28 21:10 | NUR ---
msrn refused to take anything by mouth for now. present ivf continued. repositioing q 2 hrs per patients' comfort. both heels and elbows off load mattress.
--- NOTE | 2016-12-28 23:30 | NUR ---
MSRN SPOKE TO SUPPORT TEACHER REGARDING CT ABD. ORDER CHANGED TO STAT TO DO TONIGHT.
--- NOTE | 2016-12-28 23:34 | NUR ---
MSRN WENT FOR CT VIA BED.
[2016-12-28] MEDS ORDERED: VANCOMYCIN 1 GM VIAL ONE (23:42)
[2016-12-28] MEDS ORDERED: CEFTRIAXONE 1 G VIAL ONE (23:42)
[2016-12-28] MEDS ORDERED: IV D5W 50 ML IV ONE (23:43)
[2016-12-28] MEDS ORDERED: IV D5W 250 ML IV ONE (23:45)
[2016-12-28] MEDS ORDERED: SECONDARY IV SET 1 EA INFUS.SET MC ONE (23:45)
[2016-12-29] MEDS ORDERED: VANCOMYCIN 1 GM in IV D5W 250 ML IV ONE ×2
[2016-12-29] MEDS: CEFTRIAXONE 1 G in IV D5W 50 ML IV SCH (00:05)
[2016-12-29] MEDS: Z GUARD REMEDY 2 OZ OINT TP PRN (00:11)
--- NOTE | 2016-12-29 01:47 | NUR ---
msrfranklin ROCEPHINE ADMINISTERED NO UNTOWARD REACTION. KIYAO ON PROGRESS.
[2016-12-29] MEDS: IV 1/2NS 1000 ML 1,000 ML IV PRN ×2 (04:32→16:21)
--- NOTE | 2016-12-29 04:58 | NUR ---
MSRN SLEEPS ON AND OFF, REMAINS NONVERBAL. MEPILEX CHANGED ON MID BACK AND SACRAL. RIGHT GREAT TOE NAIL BLEEDING AFTER PATIENT HAD CT AT MIDNIGHT. FLUSHED WITH SALINE, STERILE DRESSING IN PLACE WRAPPED WITH KERLIX SECURELY TAPED. REPOSITIONED FOR COMFORT.
--- NOTE | 2016-12-29 06:25 | NUR ---
MSRN REMAINS UNCHANGED
[2016-12-29 06:29] LABS: BASOPHILS % (AUTO) 0.1 % (0.0-2.0); HEMATOCRIT 40 % (33-45); HEMOGLOBIN 13.7 g/dL (11.5-14.8); LYMPHOCYTES # (AUTO) 0.4 /CMM (0.8-4.8); LYMPHOCYTES % (AUTO) 5.6 % (20.0-44.0); MEAN CORPUSCULAR HEMOGLOBIN 35 PG (26.0-33.0); MEAN CORPUSCULAR HGB CONC 34 g/dl (31.0-36.0); MEAN CORPUSCULAR VOLUME 102 fL (82-100); MONOCYTES # (AUTO) 0.9 /CMM (0.1-1.30); MONOCYTES % (AUTO) 13.4 % (2.0-12.0); NEUTROPHILS # (AUTO) 5.4 /CMM (1.8-8.9); NEUTROPHILS % (AUTO) 80.9 % (43.0-81.0); PLATELET COUNT (AUTO) 121 /CMM (150-450); RDW COEFFICIENT OF VARIATION 15.8 (11.5-15.0); RED BLOOD CELL COUNT(AUTO) 3.93 MIL/uL (4.0-5.2); WHITE BLOOD COUNT (AUTO) 6.7 K/uL (4.3-11.0)
[2016-12-29 06:52] LABS: CHOLESTEROL 99 mg/dL (<200); HDL CHOLESTEROL 23 mg/dL (40-60); LDL 45 mg/dL (0-99); THYROID STIMULATING HORMONE 0.885 uIU/mL (0.358-3.74); TRIGLYCERIDES 102 mg/dL (30-150)
[2016-12-29 07:15] LABS: ALBUMIN 1.8 g/dL (3.4-5.0); ALKALINE PHOSPHATASE 85 U/L (46-116); ASPARTATE AMINOTRANSFERASE 814 U/L (15-37); CALCIUM, SERUM 7.5 mg/dL (8.5-10.1); CARBON DIOXIDE 25 mmol/L (21-32); CHLORIDE 115 mmol/L (98-107); CREATININE 1.1 mg/dL (0.6-1.3); GLUCOSE 102 mg/dL (74-106); MAGNESIUM 2.8 mg/dL (1.8-2.4); PHOSPHORUS 3.3 mg/dL (2.5-4.9); POTASSIUM 3.4 mmol/L (3.5-5.1); SODIUM SERUM 148 mmol/L (136-145); UREA NITROGEN, BLOOD 68 mg/dL (7-18)
--- NOTE | 2016-12-29 07:15 | NUR ---
RN NOTES PATIENT AWAKE, OPENS EYES, NONVERBAL, RESPIRATIONS EVEN AND UNLABORED, IN NO APPARENT PAIN OR DISCOMFORT. PATIENT KEPT CLEAN DRY AND COMFORTABLE, IV SITE PATENT AND INTACT NO REDNESS OR INFILTRATION NOTED. WILL CONTINUE TO MONITOR AND CONTINUE CURRENT TREATMENT ORDERED. CALL LIGHT WITHIN EASY REACH, WILL CONTINUE TO MONITOR
[2016-12-29] MEDS: LEVOTHYROXINE SODIUM 50 MCG TABLET PO SCH (07:30)
[2016-12-29] MEDS: PANTOPRAZOLE 40 MG TABLET.DR PO SCH (07:30)
[2016-12-29 08:00] VITALS: BP 159/99
[2016-12-29 08:16] LABS: INR 1.11 (0.87-1.13)
[2016-12-29] MEDS ORDERED: FEE PK DOSING 1 MIN EA MC ONE (08:30)
[2016-12-29 08:36] LABS: ALANINE AMINOTRANSFERASE 1535 U/L (12-78)
[2016-12-29] MEDS: AMIODARONE HCL 200 MG TABLET PO SCH (09:00)
[2016-12-29] MEDS: METOPROLOL TARTRATE 50 MG TABLET PO SCH ×2 (09:00→21:00)
--- NOTE | 2016-12-29 09:55 | NUR ---
WOUND CARE CONSULT: PT FOLLOWED BY SURGICAL TEAM. RECOMMEND LOW AIRLOSS BED. DISCUSSED SKIN PROTECTION WITH NURSING STAFF. WILL SEE PRN. BASS IN AGREEMENT WITH PLAN OF CARE.
[2016-12-29 10:14] LABS: BAND % (MANUAL) 8 % (0.0-5.0); LYMPHOCYTES % (MANUAL) 5 % (16-48); MONOCYTES % (MANUAL) 17 % (0-11.0); NEUTROPHILS % (MANUAL) 70 (42-76)
[2016-12-29] MEDS ORDERED: POTASSIUM CHLORIDE 20 MEQ TAB.PRT.SR PO SCH (12:30)
[2016-12-29] MEDS ORDERED: POTASSIUM CL. PREMIX PERIPHER. 50 ML IV SCH (13:36)
[2016-12-29] MEDS: NEOMY SULF/BACITRAC ZN/POLY 15 GM TUBE TP SCH (13:40)
[2016-12-29] MEDS ORDERED: METRONIDAZOLE 500MG/ NS 100ML 500 MG in PREMIX 1 EA IV SCH (14:00)
[2016-12-29] MEDS ORDERED: LACTULOSE 10 G/15 ML UDC (PYXIS) PO PRN (14:00)
[2016-12-29 16:00] VITALS: BP 160/74
--- NOTE | 2016-12-29 16:00 | NUR ---
RN NOTES RECEIVED NOTICE FROM BRAND LEADER PT'S JOSELITO OKAY TO CONTINUE CURRENT TREATMENT IF NO PROGRESS TO HAVE HOSPICE EVAL WILL CONTINUE TO MONITOR, DPOA ALSO STATES PT TO BE DNR/DNI, TWO RN WITNESS ARIELLA AND AWARE, ORDERS PLACED, TO CONTINUE TO MONITOR Addendum: 12/29/16 at 1644 by SAMUEL LAMB RN Amended: Links added.
[2016-12-29] MEDS ORDERED: SECONDARY IV SET 1 EA INFUS.SET MC ONE (16:14)
[2016-12-29] MEDS ORDERED: IV SET PRIMARY PUMP SET 1 EA INFUS.SET MC ONE (16:15)
[2016-12-29] MEDS: METRONIDAZOLE 500MG/ NS 100ML 500 MG in PREMIX 1 EA IV SCH (17:30)
--- NOTE | 2016-12-29 17:49 | NUR ---
RN NOTES SEEN BY SPEECH THERAPY WITH RECOMMENDATION FOR NPO EXCEPT MEDS, DNP AWARE, WILL CONTINUE ASPIRATION PRECAUTIONS, ZOFRAN PRN GIVEN FOR C/O NAUSEA, WILL CONTINUE TO MONITOR
--- NOTE | 2016-12-29 18:48 | NUR ---
RN NOTES PATIENT AWAKE, OPENS EYES, NONVERBAL, RESPIRATIONS EVEN AND UNLABORED, IN NO APPARENT PAIN OR DISCOMFORT. PATIENT KEPT CLEAN DRY AND COMFORTABLE, IV SITE PATENT AND INTACT NO REDNESS OR INFILTRATION NOTED. WILL CONTINUE TO MONITOR AND CONTINUE CURRENT TREATMENT ORDERED. CALL LIGHT WITHIN EASY REACH, REORIENTED NEEDED, WILL CONTINUE TO MONITOR AND ENDORSE TO NEXT SHIFT FOR CONTINUITY OF CARE
--- NOTE | 2016-12-29 19:30 | NUR ---
MS RN NOTE: PATIENT RESTING IN BED, NO ACUTE DISTRESS NOTED. BREATHING EVEN AND UNLABORED, NO SOB NOTED. IV TO LEFT HAND IN PLACE, INFUSING 1/2NS AT 125ML/HR. ISOLATION PRECAUTIONS OBSERVED. BED LOCKED AND IN LOWEST POSITION, CALL LIGHT IN REACH. WILL CONTINUE TO MONITOR.
[2016-12-29 20:00] VITALS: BP 148/68
[2016-12-29] MEDS: ENOXAPARIN SODIUM 30 MG/0.3 ML DISP.SYRIN SQ SCH (21:25)
[2016-12-29] MEDS: Potassium Chloride 40 MEQ in IV D5W 1,000 ML IV PRN (21:25)
--- NOTE | 2016-12-29 21:30 | NUR ---
MS RN NOTE: PATIENT UNABLE TO SAFELY SWALLOW MEDICATIONS. EVENING MEDICATION HELD. HOB ELEVATED. WILL CONTINUE TO MONITOR.
[2016-12-30] MEDS ORDERED: SECONDARY IV SET 1 EA INFUS.SET MC ONE ×2 (00:17→21:49)
[2016-12-30] MEDS: CEFTRIAXONE 1 G in IV D5W 50 ML IV SCH (00:19)
[2016-12-30] MEDS ORDERED: VANCOMYCIN 0.75 GM in IV D5W 250 ML IV SCH (01:00)
[2016-12-30] MEDS: METRONIDAZOLE 500MG/ NS 100ML 500 MG in PREMIX 1 EA IV SCH ×3 (02:39→17:11)
--- NOTE | 2016-12-30 06:00 | NUR ---
MS RN NOTE: PATIENT RESTING IN BED, NO ACUTE DISTRESS NOTED. BREATHING EVEN AND UNLABORED, NO SOB NOTED. IV TO LEFT HAND IN PLACE, INFUSING D5W WITH 40 MEQ KCL AT 100ML/HR. ISOLATION PRECAUTIONS OBSERVED. BED LOCKED AND IN LOWEST POSITION, CALL LIGHT IN REACH. WILL ENDORSE TODAY NURSE TO CONTINUE TO WITH PLAN OF CARE.
[2016-12-30 06:43] LABS: BASOPHILS % (AUTO) 0.3 % (0.0-2.0); EOSINOPHILS % (AUTO) 0.6 % (0.0-6.0); HEMATOCRIT 38 % (33-45); HEMOGLOBIN 12.6 g/dL (11.5-14.8); LYMPHOCYTES # (AUTO) 0.4 /CMM (0.8-4.8); MEAN CORPUSCULAR HEMOGLOBIN 34 PG (26.0-33.0); MEAN CORPUSCULAR HGB CONC 34 g/dl (31.0-36.0); MEAN CORPUSCULAR VOLUME 102 fL (82-100); MONOCYTES # (AUTO) 0.6 /CMM (0.1-1.30); MONOCYTES % (AUTO) 8.6 % (2.0-12.0); NEUTROPHILS # (AUTO) 5.3 /CMM (1.8-8.9); NEUTROPHILS % (AUTO) 83.5 % (43.0-81.0); PLATELET COUNT (AUTO) 112 /CMM (150-450); RDW COEFFICIENT OF VARIATION 15.2 (11.5-15.0); RED BLOOD CELL COUNT(AUTO) 3.69 MIL/uL (4.0-5.2); WHITE BLOOD COUNT (AUTO) 6.4 K/uL (4.3-11.0)
--- NOTE | 2016-12-30 07:17 | NUR ---
MS RN NOTES: PATIENT RECEIVED AWAKE IN BED IN NO ACUTE SIGN OF DISTRESS. ALERT AND ORIENTED X1, APPEARS COMFORTABLE. ON ROOM AIR, BREATHING EVEN AND UNLABORED. HOB ELEVATED. ISOLATION PRECAUTIONS MAINTAINED. IV ACCESS TO LEFT HAND INTACT AND PATENT WITH IVF OF D5W WITH 40 MEQ KCL AT 100ML/HR INFUSING WELL. BED LOCKED AND IN LOWEST POSITION, CALL LIGHT WITHIN REACH. WILL CONTINUE TO MONITOR ACCORDINGLY.
[2016-12-30 07:46] LABS: CALCIUM, SERUM 7.4 mg/dL (8.5-10.1); CARBON DIOXIDE 24 mmol/L (21-32); CHLORIDE 111 mmol/L (98-107); CREATININE 0.8 mg/dL (0.6-1.3); GLUCOSE 125 mg/dL (74-106); MAGNESIUM 2.5 mg/dL (1.8-2.4); PHOSPHORUS 2.3 mg/dL (2.5-4.9); POTASSIUM 3.4 mmol/L (3.5-5.1); SODIUM SERUM 143 mmol/L (136-145); UREA NITROGEN, BLOOD 45 mg/dL (7-18)
[2016-12-30 08:00] VITALS: BP 154/74
[2016-12-30] MEDS: LEVOTHYROXINE SODIUM 50 MCG TABLET PO SCH (08:00)
[2016-12-30] MEDS: PANTOPRAZOLE 40 MG TABLET.DR PO SCH (08:00)
[2016-12-30] MEDS: METOPROLOL TARTRATE 50 MG TABLET PO SCH ×2 (08:19→20:56)
[2016-12-30] MEDS: AMIODARONE HCL 200 MG TABLET PO SCH (08:20)
[2016-12-30] MEDS: NEOMY SULF/BACITRAC ZN/POLY 15 GM TUBE TP SCH (08:20)
[2016-12-30] MEDS: Potassium Chloride 40 MEQ in IV D5W 1,000 ML IV PRN (11:21)
--- NOTE | 2016-12-30 14:17 | NUR ---
RN NOTES PATIENT'S WOUNDS SEEN AND EVALUATED BY KARSTEN RICARDO WITH ORDER TO CHECK PREALBUMIN LEVEL, RESULTS CAME LOW 11.3 AND SHE WAS MADE AWARE WITH RECOMMENDATION TO GIVE NUTRITION FOR THE PATIENT PROBABLY VIA NGT. MD Immanuel FORBES MADE AWARE, NO NEW ORDER MADE AT THIS TIME.
[2016-12-30 15:57] VITALS: BP 159/74
[2016-12-30 16:00] VITALS: BP 159/74
[2016-12-30] MEDS ORDERED: NEUTRA PHOS 1 POWD.PACKET PO ONE (16:00)
--- NOTE | 2016-12-30 16:28 | NUR ---
RN NOTES CALLED PT'S NIECE MADHU JOSE L AT [phone] BUT UN-ABLE TO REACH HER, IT'S HER ROOM MATE GRICELDA WHO ANSWERED THE PHONE AND TOLD HER TO CALL US SOON SHE GETS THE MESSAGE. WILL FOLLOW-UP.
[2016-12-30] MEDS ORDERED: IPRATROPIUM NEB FS 0.5 MG/2.5 ML AMPUL.NEB NEB SCH (18:00)
[2016-12-30] MEDS ORDERED: ALBUTEROL FS 2.5 MG/0.5 ML VIAL.NEB NEB SCH (18:00)
--- NOTE | 2016-12-30 18:13 | NUR ---
RN NOTES PT'S NIECE MADHU MANCERA CALLED BACK AND HAS SOME CONCERNS REGARDING PATIENT'S INSERTION OF NGT AND PT'S CURRENT STATUS. EXPLAINED EVERYTHING ABOUT NGT PROCEDURE BUT SHE STILL WANTED TO TALK TO MD. INFORMED DR FORBES AND SAID THAT HE WILL TALK TO THE FAMILY.
--- NOTE | 2016-12-30 19:17 | NUR ---
MS RN CLOSING NOTES: PATIENT IN BED AWAKE, ALERT AND ORIENTED X1. NO SIGNIFICANT CHANGES NOTED THROUGHOUT THE DAY. ENDORSED TO CAN LINE EXAMINER NURSE TO F/U WITH PT'S NIECE REGARDING CONSENT FOR NGT. ON ROOM AIR, BREATHING EVEN AND UNLABORED. HOB ELEVATED. ISOLATION PRECAUTIONS MAINTAINED. IV ACCESS TO LEFT HAND INTACT AND PATENT WITH IVF OF D5W WITH 40 MEQ KCL AT 100ML/HR INFUSING WELL. BED LOCKED AND IN LOWEST POSITION, CALL LIGHT WITHIN REACH. WILL CONTINUE TO MONITOR ACCORDINGLY.
--- NOTE | 2016-12-30 19:30 | NUR ---
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 CALL LIGHT IN REACH,NEEDS ANTICIPATED.DNR/DNI STATUS.
[2016-12-30 20:00] VITALS: BP 147/72
[2016-12-30] MEDS: ENOXAPARIN SODIUM 30 MG/0.3 ML DISP.SYRIN SQ SCH (20:58)
[2016-12-30] MEDS: MEROPENEM 1 G in IV NS 0.9% 100 ML IV SCH (21:00)
[2016-12-30] MEDS ORDERED: IV NS 0.9% 100 ML IV ONE (21:49)
[2016-12-30] MEDS ORDERED: MEROPENEM 1 G VIAL IV ONE (21:56)
[2016-12-30 22:00] VITALS: BP 147/72
--- NOTE | 2016-12-30 22:00 | NUR ---
MS RN NOTES STARTED ON MERREM 1 GM IN NS 100ML AT 200ML/HR RATE Q 8 HOURS ORDERED BT SUJIT FORBES DNP
--- NOTE | 2016-12-30 23:00 | NUR ---
MS RN NOTES NO STOCK OF D5W WITH 40MEQ.ONLY D5W WITH 20MEQ.MD MADE AWARE,AWAITING TO CALL BACK.
--- NOTE | 2016-12-30 23:03 | NUR ---
MALCOLM MARBLE POLISHER HAND: CONTACTED DR PAOLA FOWLER MARBLE POLISHER HAND, RELAYED ABOUT NGTUBE INSERTION, INFORMED MD THAT UNABLE TO INSERT NGT, ALREADY TRIED TWICE ON LEFT AND RIGHT NARES, BUT MEETING RESISTANCE, AND THAT NOSE IS BLEEDING, PT ON LOVENOX, MD ASKED WHO ORDERED NGTUBE, INFORMED MD THAT PT HAD FAILED SWALLOW EVAL AND NOT EATING SINCE ADMISSION, MD ASKED IF THE PT RECEIVING ANY IVF, INFORMED MD THAT PT ON IVF, PER MD "THAT'S OKAY, KEEP HER NPO TILL AM, NO NEED FOR NGTUBE"
[2016-12-30] MEDS ORDERED: IV PREMIX D5W + KCL 1,000 ML IV ONE (23:36)
--- NOTE | 2016-12-30 23:39 | NUR ---
MS RN NOTES PER DR GUEVARA,ITS OK TO HUNG D5W 1LITER WITH 20MEQ KCL.
[2016-12-31] MEDS ORDERED: Potassium Chloride 20 MEQ in IV D5W 1,000 ML IV PRN ×2
[2016-12-31] MEDS: METRONIDAZOLE 500MG/ NS 100ML 500 MG in PREMIX 1 EA IV SCH ×3 (01:59→18:00)
[2016-12-31] MEDS ORDERED: MEROPENEM 1 G VIAL IV ONE (04:26)
[2016-12-31] MEDS ORDERED: IV NS 0.9% 100 ML IV ONE (04:45)
[2016-12-31] MEDS: MEROPENEM 1 G in IV NS 0.9% 100 ML IV SCH (04:55)
--- NOTE | 2016-12-31 06:17 | NUR ---
MS RN NOTES A/O X1,EASILY AROUSABLE TO TACTILE STIMULI.BREATHING NON LABORED.IVF TOLERATED WELL,IV ABX TOLERATED WELL.REPOSITION PER PROTOCOL.POSSIBLE D/C BACK TO BOARD AND CARE.WILL ENDORSED TO DAY NURSE FOR CARMINE.
[2016-12-31 06:31] LABS: BASOPHILS % (AUTO) 0.2 % (0.0-2.0); EOSINOPHILS % (AUTO) 0.4 % (0.0-6.0); HEMATOCRIT 41 % (33-45); HEMOGLOBIN 13.8 g/dL (11.5-14.8); LYMPHOCYTES # (AUTO) 0.4 /CMM (0.8-4.8); LYMPHOCYTES % (AUTO) 5.6 % (20.0-44.0); MEAN CORPUSCULAR HEMOGLOBIN 34 PG (26.0-33.0); MEAN CORPUSCULAR HGB CONC 34 g/dl (31.0-36.0); MEAN CORPUSCULAR VOLUME 102 fL (82-100); MONOCYTES # (AUTO) 0.7 /CMM (0.1-1.30); MONOCYTES % (AUTO) 11.8 % (2.0-12.0); NEUTROPHILS # (AUTO) 5.2 /CMM (1.8-8.9); PLATELET COUNT (AUTO) 113 /CMM (150-450); RDW COEFFICIENT OF VARIATION 15.3 (11.5-15.0); RED BLOOD CELL COUNT(AUTO) 4.01 MIL/uL (4.0-5.2); WHITE BLOOD COUNT (AUTO) 6.4 K/uL (4.3-11.0)
[2016-12-31 06:45] LABS: CALCIUM, SERUM 7.2 mg/dL (8.5-10.1); CARBON DIOXIDE 19 mmol/L (21-32); CHLORIDE 110 mmol/L (98-107); CREATININE 0.9 mg/dL (0.6-1.3); GLUCOSE 107 mg/dL (74-106); MAGNESIUM 1.9 mg/dL (1.8-2.4); PHOSPHORUS 1.8 mg/dL (2.5-4.9); POTASSIUM 4.2 mmol/L (3.5-5.1); SODIUM SERUM 138 mmol/L (136-145); UREA NITROGEN, BLOOD 27 mg/dL (7-18)
--- NOTE | 2016-12-31 07:21 | NUR ---
MS RN OPENING NOTES: PATIENT RECEIVED ASLEEP IN BED, EASILY AWAKENS. ALERT AND ORIENTED X1, APPEARS COMFORTABLE WITH NO S/S OF PAIN OBSERVED. ON ROOM AIR, BREATHING EVEN AND UNLABORED. HOB ELEVATED. ISOLATION PRECAUTIONS MAINTAINED. IV ACCESS TO LEFT HAND INTACT AND PATENT WITH IVF OF D5W WITH 40 MEQ KCL @ 100ML/HR INFUSING WELL. BED LOCKED AND IN LOWEST POSITION, CALL LIGHT WITHIN REACH. WILL CONTINUE TO MONITOR ACCORDINGLY.
[2016-12-31] MEDS: LEVOTHYROXINE SODIUM 50 MCG TABLET PO SCH (07:51)
[2016-12-31] MEDS: PANTOPRAZOLE 40 MG TABLET.DR PO SCH (07:51)
[2016-12-31] MEDS ORDERED: IV D5/0.45 NACL 1,000 ML IV PRN (07:54)
[2016-12-31 08:00] VITALS: BP 131/73
--- NOTE | 2016-12-31 08:11 | NUR ---
RN NOTES MD AWARE OF PT'S K OF 4.2 THIS MORNING, ORDERED TO CHANGE D5W + 20MEQ K TO D5 1/2 NS @ 75ML/HR AND FOR CMP TOMORROW( 01/01/2017). WILL CONTINUE TO MONITOR.
[2016-12-31] MEDS: AMIODARONE HCL 200 MG TABLET PO SCH (08:31)
[2016-12-31] MEDS: NEOMY SULF/BACITRAC ZN/POLY 15 GM TUBE TP SCH (08:32)
[2016-12-31] MEDS: METOPROLOL TARTRATE 50 MG TABLET PO SCH (08:32)
[2016-12-31 16:00] VITALS: BP 159/76
[2016-12-31] MEDS ORDERED: K PHOS NEUTRAL 250 MG TABLET PO ONE (16:00)
--- NOTE | 2016-12-31 16:10 | NUR ---
MS RN NOTES PATIENT SEEN AND EVALUATED BY DR FORBES. INFORMED REGARDING LOW PHOSPHOROUS 1.8 AND OTHER ABNORMAL BLOOD WORKS. MD ORDERED NEUTRA PHOS K TAB 500MG X 1 DOSE. WILL CARRY OUT ORDER.
[2016-12-31] MEDS ORDERED: MEROPENEM 500 MG in IV NS 0.9% 50 ML IV SCH (17:00)
--- NOTE | 2016-12-31 17:44 | NUR ---
MS DISCHARGED NOTES PATIENT DISCHARGED TO [facility] & IN STABLE CONDITION. LEFT UNIT ALERT AND RESPONSIVE TO VERBAL STIMULI @ 1740H VIA WHEELCHAIR ACCOMPANIED BY 2 EMT'S. NO SIGNS OF PAIN OR DISCOMFORTS NOTED DURING DISCHARGE. REPORT GIVEN TO BRANDON GONG, THE HEALTH MELTER HELPER OF THE BOARD & CARE. DE MANCERA INFORMED ALSO OF PT'S DISCHARGE. V/S TAKEN AND RECORDED. PHOTOS OF WOUNDS TAKEN AND FILED ON CHART. BELONGINGS CHECKED, COUNTED AND SIGNED FORM. HEALTH TEACHINGS GIVEN TO PT. MD AND CLAIMS ACCOUNT MANAGER AWARE OF DISCHARGE
== END 2016-12-31 17:40 | disposition home or self-care (01) | DRG 720 ==
LOC: ER 10:11 → MEDSG2 12:41
PROVIDERS: ADMIT Nurse Practitioner Acute Care; ATTEND Nurse Practitioner Acute Care
DX: A41.9 Sepsis, unspecified organism (principal); N17.0 Acute kidney failure with tubular necrosis; E43 Unspecified severe protein-calorie malnutrition; G93.40 Encephalopathy, unspecified; E87.0 Hyperosmolality and hypernatremia; L89.100 Pressure ulcer of unspecified part of back, unstageable; I11.0 Hypertensive heart disease with heart failure; S36.119A Unspecified injury of liver, initial encounter; I50.32 Chronic diastolic (congestive) heart failure; F03.90 Unspecified dementia, unspecified severity, without behavioral disturbance, psychotic disturbance, mood disturbance, and anxiety; I48.0 Paroxysmal atrial fibrillation; L89.150 Pressure ulcer of sacral region, unstageable; E86.0 Dehydration; E88.09 Other disorders of plasma-protein metabolism, not elsewhere classified; E78.5 Hyperlipidemia, unspecified; E03.9 Hypothyroidism, unspecified; I25.10 Atherosclerotic heart disease of native coronary artery without angina pectoris; Z88.0 Allergy status to penicillin; Z88.2 Allergy status to sulfonamides; E80.6 Other disorders of bilirubin metabolism; R74.0 Nonspecific elevation of levels of transaminase and lactic acid dehydrogenase [LDH]; M62.50 Muscle wasting and atrophy, not elsewhere classified, unspecified site; D75.89 Other specified diseases of blood and blood-forming organs; L89.621 Pressure ulcer of left heel, stage 1; L89.611 Pressure ulcer of right heel, stage 1; L98.8 Other specified disorders of the skin and subcutaneous tissue; L89.891 Pressure ulcer of other site, stage 1; S91.201A Unspecified open wound of right great toe with damage to nail, initial encounter; X58.XXXA Exposure to other specified factors, initial encounter; Y93.9 Activity, unspecified; Y92.89 Other specified places as the place of occurrence of the external cause; Y99.9 Unspecified external cause status; I27.2 Other secondary pulmonary hypertension; Z68.1 Body mass index [BMI] 19.9 or less, adult; K52.9 Noninfective gastroenteritis and colitis, unspecified; K59.00 Constipation, unspecified; Z86.14 Personal history of Methicillin resistant Staphylococcus aureus infection; N39.0 Urinary tract infection, site not specified; B96.20 Unspecified Escherichia coli [E. coli] as the cause of diseases classified elsewhere; Z16.12 Extended spectrum beta lactamase (ESBL) resistance; M24.575 Contracture, left foot; M24.574 Contracture, right foot; K80.20 Calculus of gallbladder without cholecystitis without obstruction
CPT/HCPCS: 36415; 71010-TC; 80048-TC; 80053-TC; 80061-TC; 80076-TC; 81000-TC; 83605-TC; 83690-TC; 83735-TC; 84100-TC; 84134-TC; 84443-TC; 84484-TC; 85025-TC; 85610-TC; 85652-TC; 85730-TC; 87040-TC; 87081-TC; 87086-TC; 87186-TC; 92611-TC; A4216; A4606; A6402; J0696; J1650; J1956; J2185; J2405; J3370; J3480; J3490; J7030; J7060; J7070; Z7610